=== PATIENT | female | born 1985 | race Caucasian/White ===

== ENCOUNTER 2019-09-15 11:13 | Emergency (ER) | payer OTHER, SELFPAY ==
[2019-09-15 11:38] VITALS: BP 120/85; PULSE 88; RESP 16; TEMP 37.1; O2SAT 100
--- NOTE | 2019-09-15 11:42 | ED.DENTAL ---
HPI - Dental/Oral General Chief complaint: Allergic Reaction Stated complaint: Swollen left cheek Time Seen by Provider: 09/15/19 11:42 Source: patient and RN notes reviewed History of Present Illness HPI Narrative: Patient is a 34-year-old female presents the urgent care with complaints of left facial swelling. Patient states that it started in the left cheek and left upper lip last night. Patient states originally it was the left lower lip that was very large and swollen which is since subsided. Patient states this has been occurring intermittently for the last year and her PCP is aware. Patient states she is taken Benadryl without any improvement. Patient denies any difficulty swallowing or shortness of breath. Denies any known allergies. Has not ever seen an finish machine tender. No other acute complaints. No acute distress noted. Patient had a plan of care. Related Data Allergies Allergy/AdvReac Type Severity Reaction Status Date / Time No Known Allergies Allergy Verified 09/15/19 11:52 Review of Systems Review of Systems: Narrative: CONSTITUTIONAL: Denies fever, chills, or sweats. EYES: Denies visual changes, redness, or discharge. ENT: Denies rhinorrhea, congestion, sore throat, or otalgia. Reports of left facial and upper left lip swelling CARDIOVASCULAR: Denies chest pain, palpitations, or edema. RESPIRATORY: Denies cough or dyspnea. GASTROINTESTINAL: Denies abdominal pain, nausea, vomiting, or diarrhea. GENITOURINARY: Denies dysuria or hematuria. SKIN: Denies rash or itching. MUSCULOSKELETAL: Denies back pain, joint pain, or myalgia. NEUROLOGIC: Denies headache, numbness, or weakness. All other systems reviewed are negative, except as documented in HPI. PMFSH Social History Social History (Updated 07/21/19 @ 20:44 by MALISSA Herrera) Smoking status: Never smoker Comments At the time of my signature, I reviewed and agree with the nursing past medical, surgical, social, and family history. There is no relevant family history pertinent to the patient complaint. Exam Narrative: Exam Narrative: GENERAL: This is a well-nourished, well-developed patient, in no apparent distress. HEAD: normocephalic, atraumatic. Mild to moderate left facial edema without any obvious ecchymosis/trauma. Mild upper left lip edema EYES: PERRL. Sclera clear/white. Vision is grossly intact. EARS: External ears normal, auditory canals clear and without drainage, TMs normal without perforation. Hearing grossly intact. NOSE: External nose normal with no obvious nasal discharge, nares without redness, no rhinorrhea. THROAT: Mucous membranes moist, posterior pharynx clear. NECK: Neck supple, non-tender without lymphadenopathy CARDIOVASCULAR: Regular rate and rhythm without murmurs, gallops, or rubs. RESPIRATORY: Clear to auscultation. Breath sounds equal bilaterally. No wheezes, rales, or rhonchi. SKIN: warm, intact with no suspicious lesions or rash, good texture and turgor. NEURO: awake, alert, and oriented to person, place and time. There were no obvious focal neurologic abnormalities. EXTREMITIES: No clubbing, cyanosis, or edema. Course Vital Signs Vital signs: Vital Signs Temperature 98.8 F 09/15/19 11:38 Pulse Rate 88 09/15/19 11:38 Respiratory Rate 16 09/15/19 11:38 Blood Pressure 120/85 09/15/19 11:38 Pulse Oximetry 100 09/15/19 11:38 Temperature 98.8 F 09/15/19 11:38 Pulse Rate 88 09/15/19 11:38 Respiratory Rate 16 09/15/19 11:38 Blood Pressure 120/85 09/15/19 11:38 Pulse Oximetry 100 09/15/19 11:38 Reviewed MDM - Dental/Oral MDM Narrative Medical decision making narrative: Advised the patient to start steroid regimen tomorrow and complete as prescribed. May use Benadryl as needed. Take a daily allergy medication. If you develop any increase in swelling associated with difficulty swallowing/breathing/shortness of breath?go to the emergency room. Follow-up with PCP as scheduled. Nishanta
[2019-09-15] MEDS: predniSONE 20 MG TABLET 60 MG PO (11:57)
== END 2019-09-15 12:17 | disposition home or self-care (01) ==
PROVIDERS: Emergency Provider Nurse Practitioner Family
DX: R22.0 Localized swelling, mass and lump, head (principal); T78.40XA Allergy, unspecified, initial encounter
CPT/HCPCS: 99213; G0463; J7512

== ENCOUNTER 2021-06-29 15:39 | Emergency (ER) | payer OTHER, SELFPAY ==
[2021-06-29 16:05] VITALS: BP 131/85; PULSE 78; RESP 14; TEMP 36.8; O2SAT 100
--- NOTE | 2021-06-29 17:09 | ED.EYEPROB ---
HPI - Eye Problem General Chief complaint: Eye Problems Stated complaint: Eye Problem Left/Sore Throat Source: patient Mode of arrival: ambulatory Limitations: no limitations History of Present Illness HPI Narrative: Patient is a 36-year-old female who presents complaining of bilateral eye irritation and discharge x4 days. 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 She denies injury. She denies all other complaints at this time. Patient denies fever, cough, or chest pain. Related Data Home Medications Medication Instructions Recorded Confirmed desogestrel-ethinyl estradiol 1 tablet PO DAILY 06/29/21 06/29/21 [Apri] fluoxetine 30 mg PO DAILY 06/29/21 06/29/21 Allergies Allergy/AdvReac Type Severity Reaction Status Date / Time No Known Allergies Allergy Verified 06/29/21 16:17 Review of Systems Review of Systems: CONSTITUTIONAL: Denies fever, chills, or sweats. EYES: Denies visual changes, reports redness and discharge bilaterally, photophobia ENT: Denies rhinorrhea, congestion, sore throat, or otalgia. CARDIOVASCULAR: Denies chest pain, palpitations, or edema. RESPIRATORY: Denies cough or dyspnea. GASTROINTESTINAL: Denies abdominal pain, nausea, vomiting, or diarrhea. GENITOURINARY: Denies dysuria or hematuria. SKIN: Denies rash or itching. MUSCULOSKELETAL: Denies back pain, joint pain, or myalgia. NEUROLOGIC: Denies headache, numbness, dizziness, or weakness. PSYCHIATRIC: Denies anxiety or depression. [facility] Social History Social History (Updated 06/29/21 @ 17:13 by MALISSA Andrade) Smoking status: Never smoker Alcohol intake: never Substance use: never Living arrangements: with family Comments At the time of signature, I have reviewed and agree with nursing past medical, surgical, social, and family history unless otherwise noted. Please see nursing chart for further information. There is no relevant family history pertinent to the presenting complaint. Exam Narrative: GENERAL: Well-appearing, well-nourished, and in no acute distress. HEAD: Normocephalic, atraumatic. EYES: EOMI. no redness and drainage noted to bilateral eyes. Conjunctiva and sclera injected bilaterally ENT: Mucous membranes pink and moist. Nares clear. No rhinorrhea. TMs normal bilaterally. Throat normal. Uvula midline. NECK: AROM. Supple. No lymphadenopathy. CHEST: No respiratory distress. Clear to auscultation. HEART: Regular rate and rhythm. No murmur appreciated. Normal peripheral pulses. GI: Soft, nontender without rebound, or guarding. No distention. Bowel sounds normal in all quadrants. MUSCULOSKELETAL: No bony tenderness. EXTREMITIES: Normal range of motion. No edema. SKIN: Warm, dry, no rash. NEURO: No focal deficits. Alert and oriented x3. Gait steady. PSYCH: Normal affect. No signs of depression or anxiety. Course Vital Signs Vital signs: Vital Signs Temperature 36.8 C 06/29/21 16:05 Pulse Rate 78 06/29/21 16:05 Respiratory Rate 14 06/29/21 16:05 Blood Pressure 131/85 06/29/21 16:05 Pulse Oximetry 100 06/29/21 16:05 Temperature 36.8 C 06/29/21 16:05 Pulse Rate 78 06/29/21 16:05 Respiratory Rate 14 06/29/21 16:05 Blood Pressure 131/85 06/29/21 16:05 Pulse Oximetry 100 06/29/21 16:05 Reviewed MDM - Eye Problem MDM Narrative Medical decision making narrative: Patient's rapid strep is negative at this time. Patient appears to have bilateral conjunctivitis. Polymyxin B trimethoprim prescribed at this time. Patient is aware that she needs to stay home for 24 hours after starting antibiotics. Patient is stable for discharge to home with outpatient follow-up as discussed. Patient is aware of red flags in which she would need to seek further care. Differential Diagnosis Differential diagnosis: Likely corneal abrasion, conjunctivitis, periorbital cellulitis, subconjunctival hemorrhage and corneal ulcer Lab Data Attestation: I reviewed the patient's lab result
== END 2021-06-29 17:12 | disposition home or self-care (01) ==
PROVIDERS: Emergency Provider Nurse Practitioner
DX: H10.9 Unspecified conjunctivitis (principal); J02.9 Acute pharyngitis, unspecified
CPT/HCPCS: 87081; 87880; 99213; G0463

== ENCOUNTER 2022-04-20 09:34 | Emergency (ER) | payer OTHER, SELFPAY ==
[2022-04-20 09:38] VITALS: BP 107/77; PULSE 99; RESP 14; TEMP 36.7; O2SAT 99
--- NOTE | 2022-04-20 09:52 | ED.GENADULT ---
HPI - General Adult General Chief complaint: Ear Stated complaint: ears head congestion, teeth ache Time Seen by Provider: 04/20/22 09:52 Source: patient, RN notes reviewed and old records reviewed Mode of arrival: ambulatory Limitations: no limitations History of Present Illness HPI narrative: 37 year old female presents to [facility] care with complaints of headache pain, ear pain, sinus congestion and drainage,and her teeth hurt for one day duration. Patient denies any fevers chills or sweats or any body aches. Patient reports that she has taken Tylenol for her discomfort, has not taken any nasal decongestants or any antihistamines. Patient states she was working in the yard yesterday planting her mums. MD complaint: sinus congestion, ears pain, headache Onset (ago): day(s) (1) Severity scale (1-10): 7 Treatments prior to arrival: other (Tylenol) Related Data Allergies Allergy/AdvReac Type Severity Reaction Status Date / Time No Known Allergies Allergy Verified 04/20/22 09:48 Review of Systems Review of Systems: CONSTITUTIONAL: Denies fever, chills, or sweats. EYES: Denies visual changes, redness, or discharge. ENT: positive for rhinorrhea, congestion, sore throat, or otalgia. CARDIOVASCULAR: Denies chest pain, palpitations, or edema. RESPIRATORY: Denies cough or dyspnea. GASTROINTESTINAL: Denies abdominal pain, nausea, vomiting, or diarrhea. GENITOURINARY: Denies dysuria or hematuria. SKIN: Denies rash or itching. MUSCULOSKELETAL: Denies back pain, joint pain, or myalgia. NEUROLOGIC: Positive for headache,no numbness, or weakness. PSYCHIATRIC: Denies anxiety or depression. All systems reviewed & are unremarkable except as noted in HPI and below PMFSH Past Medical History Medical History (Updated 04/21/22 @ 00:01 by Salty Vick) Anxiety Kidney stone Social History Social History (Updated 06/29/21 @ 17:13 by Joan oRwell, CONFERENCE DIRECTOR) Smoking status: Never smoker Alcohol intake: never Substance use: never Comments At time of signature, agree with nursing past medical, surgical, social and family history. There is no relevant family history pertinent to the presenting complaint Exam Narrative: GENERAL: Well-appearing, well-nourished, and in no acute distress. HEAD: Normocephalic, atraumatic. EYES: PERRLA and EOMI. ENT: Nares pink, clear rhinorrhea no epistaxis. Mucous membranes moist.TM's normal with good light reflex, throat pink with no lesions or swelling some post nasal drainge NECK: Supple.no lymphadenopathy CHEST: Clear to auscultation. No respiratory distress.no cough noted, SAO2 99% on room air HEART: Regular rate and rhythm. No murmur heard. Normal peripheral pulses. ABDOMEN: Soft, nontender, nondistended, normal active bowel sounds. EXTREMITIES: Normal range of motion. No edema. SKIN: Warm, dry, no rash. NEURO: No focal deficits. Alert and oriented x3. Course Course Level of Care: Express Care Visit Vital Signs Vital signs: Vital Signs Temperature 36.7 C 04/20/22 09:38 Pulse Rate 99 04/20/22 09:38 Respiratory Rate 14 04/20/22 09:38 Blood Pressure 107/77 04/20/22 09:38 Pulse Oximetry 99 04/20/22 09:38 Oxygen Delivery Room Air 04/20/22 09:38 Temperature 36.7 C 04/20/22 09:38 Pulse Rate 99 04/20/22 09:38 Respiratory Rate 14 04/20/22 09:38 Blood Pressure 107/77 04/20/22 09:38 Pulse Oximetry 99 04/20/22 09:38 Oxygen Delivery Room Air 04/20/22 09:38 Medical Decision Making Differential Diagnosis Differential Diagnosis: URI, sinusitis, otitis media, otitis externa, viral syndrome, seasonal allergies, pharyngitis Medical Records Medical records reviewed: Yes I reviewed the external patient's medical records. Vital Signs Vital Signs: Vital Signs Temperature 36.7 C 04/20/22 09:38 Pulse Rate 99 04/20/22 09:38 Respiratory Rate 14 04/20/22 09:38 Blood Pressure 107/77 04/20/22 09:38 Pulse Oximetry 99 04/20/22 09:38 Oxygen Del
== END 2022-04-20 10:14 | disposition home or self-care (01) ==
PROVIDERS: Emergency Provider Registered Nurse
DX: J06.9 Acute upper respiratory infection, unspecified (principal)
CPT/HCPCS: 99211; G0463